=== PATIENT | male | born 1945 | race Caucasian/White ===

== ENCOUNTER 2025-02-28 11:13 | Outpatient (AMB) | payer MEDICARE, OTHER, SELFPAY ==
--- NOTE | 2025-02-28 11:15 | MHC.OFFVIS ---
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 The patient experienced shingles in 2020, which resulted in nerve damage and persistent pain. Despite initial antiviral treatment, the condition progressed to postherpetic neuralgia, characterized by hypersensitivity and scarring on the right side of the chest. The patient reports severe sensitivity to touch, extending from the chest to the armpit, impacting daily activities such as writing due to right-handedness. The patient has tried various pain management strategies, including gabapentin, which was initially effective but later caused brain fog and was discontinued. Current pain management includes Tylenol, ibuprofen, CBD, and lidocaine cream, which provide partial relief. - Onset: Pain began following shingles in 2020 - Quality: Hypersensitivity and burning sensation - Location: Right side of the chest, extending to the armpit - Exacerbating factors: Touch and pressure - Relieving factors: Lidocaine cream, CBD, and positioning - Interference: Affects writing and daily activities due to right-handedness - Affect: Reports occassional depression due to chronic pain - Analgesia: Uses Tylenol, ibuprofen, CBD, and lidocaine cream for pain relief - Adverse Effects: Experienced brain fog from gabapentin, leading to discontinuation - Activities of Daily Living: Pain affects writing and posture, causing tension in the left shoulder - Aberrant Drug Related Behaviors: No aberrant behaviors reported Review of Systems Const Details: - Neurological: Reports hypersensitivity on the right side, affecting daily activities - Musculoskeletal: Reports tension in the left shoulder due to altered posture - Psychological: Reports depression related to chronic pain Physical Exam Vital Signs: Last Vital Signs Pulse 90 02/28/25 11:19 Resp 16 02/28/25 11:19 BP 111/54 L 02/28/25 11:19 Pulse Ox 98 02/28/25 11:19 Oxygen Delivery Method Room Air 02/28/25 11:19 BMI result Body Mass Index 16.9 General: awake, alert, oriented. Answers questions appropriately. Fully engaged in examination. Appears uncomfortable, sitting in chair holding shirt away from his chest due to allodynia. Skin: warm, dry, intact HEENT: Normocephalic. Hearing intact. Cardiac: External chest normal in appearance. Respiratory: No cough, audible wheezing or stridor. Abdomen: without gross distension. MS: No obvious swelling or deformities. Right upper back/right axilla/right chest: Normal for allodynia, hyperalgesia, skin changes including discoloration texture changes, muscle weakness Neurological: Oriented to person, place, time and situation. Thought process intact. No gait abnormalities appreciated. Psychiatric: Appropriate mood and affect. Good judgment and insight. Assessment & Plan Assessment & Plan (1) CRPS (complex regional pain syndrome type II): Code(s): G56.40 - Causalgia of unspecified upper limb Category: Medical (2) Post herpetic neuralgia: Code(s): B02.29 - Other postherpetic nervous system involvement Category: Medical (3) Chronic pain: Code(s): G89.29 - Other chronic pain Category: Medical Plan The patient was informed about the option of spinal cord stimulation as a potential treatment for chronic pain due to CRPS. The procedure involves a one-week trial with temporary wires to assess pain relief before considering permanent implantation. The patient was advised to consider the procedure and was informed about the need for a mental health evaluation as part of the insurance approval process. Pamphlet was provided to the patient. He was given contact information for [employer] and also advised he can also reach out to his insurance company to find mental providers to assist with mental health clearance for implantable devices as by insurance company. The patient was encouraged to continue current pain management strategies, including the use of Tylenol, ibuprofen, CBD, and lidocaine cream. Patient was informed and verbally consented to the use of an ambient scribe for clinic note documentation during this visit. Patient Instructions: - Consider the option of spinal cord stimulation for pain management. - Continue current pain management with Tylenol, ibuprofen, CBD, and lidocaine cream. - Schedule a mental health evaluation for insurance approval if considering spinal cord stimulation. Coding Level of Care Code New Pt Level 4 (92995) Complex EM visit Add On G2211 Diagnoses CRPS (complex regional pain syndrome type II) G56.40 Post herpetic neuralgia B02.29 Chronic pain G89.29
[2025-02-28 11:19] VITALS: BP 111/54; PULSE 90; RESP 16; O2SAT 98; BMI 16.9
== END 2025-02-28 11:57 | disposition home or self-care (01) ==
LOC: HO.PMC 11:13
PROVIDERS: PCP Internal Medicine; Visit Provider Registered Nurse Emergency
DX: B02.29 Other postherpetic nervous system involvement (principal); G89.29 Other chronic pain
CPT/HCPCS: 99204; G2211

== ENCOUNTER → 2025-02-28 11:13 | Outpatient (BNVA) | payer MEDICARE, OTHER, SELFPAY | PROVIDERS: PCP Internal Medicine; Visit Provider Registered Nurse Emergency | DX: G56.41 Causalgia of right upper limb (principal); B02.29 Other postherpetic nervous system involvement; G89.29 Other chronic pain | CPT/HCPCS: 99202 ==

== ENCOUNTER 2025-04-17 11:20 | Outpatient (AMB) | payer MEDICARE, OTHER, SELFPAY ==
--- OUTSIDE RECORDS SUMMARY | 2025-04-14 13:20 | XMS_ITS | Encounter Summary ---
Author Organization [facility] Address [address] [place] [address] Phone Care Team Providers Care Timber Packer Name Role Phone Malcolm Molina MD Primary Care Provider [phone] Malcolm Molina MD Unavailable [phone] Reason for Visit * Reason Comments Tick Bite Pt is here for tick on the left shoulder. Onset 10 days Encounter Details Date Type Department Care Team (Late st Contact Info) Description 04/14/2025 1:20 PM EDT Office Visit [facility] [address] [place] [address] Valarie Casas, [facility] [address] [place] [address] [email or web address] Tick bite of left shoulder, initial encounter (Primary Dx); Erythema migrans (Lyme disease) Social History Tobacco Use Types Packs/Day Years Used Date Smoking Tobacco: Former Cigarettes 1 967 - 1971 Smokeless Tobacco: Never Alcohol Use Standard Drinks/Week Comments Yes 1 (1 standard drink = 0.6 oz pur e alcohol) nightly Child or Family Care Answer Date Record ed Do you have problems with on e of the following making it difficult for you to work, study, or receive health care? No 08/09/2021 Education Answer Date Recorded Are you interested in more education? Not on pauline e 08/13/2023 Are you concerned about learning?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 08/13/2023 No 08/13/2023 No 08/13/2023 Food Answer Date Recorded Within the past 6 months we worried whether our food would run out before we got money to buy more. Never True 08/09/2021 Within the past 6 months the food we bought just didn't last and we didn't have enough money to get more. Never True Residential Stability Answer Date Recor ded What is your housing situation today? 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 Zero (I did not move) 08/09/2021 Paying for Meds Answer Date Recorded Do you have trouble paying for medicines? No 08/09/2021 Paying Utility Bills Answer Date Record ed Do you have trouble paying your heating or elect ricity bill? No 08/09/2021 Transportation Answer Date Recorded Has the lack of transportati on kept you from medical appointments or from getting medications? No 08/09/2021 Unemployment Answer Date Recorded Are you currently unemployed or working on a part-time or temporary basis, and looking for work? No 08/09/2021 Digital Access Answer Date Recorded No 01/13/2023 No 01/13/2023 Reliable internet access at home?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 01/13/2023 Device with a working camera?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 Intimate Partner Violence Answer Date R ecorded Are you denied basic needs s [facility] as food, clothing, or medical care? No 06/27/2024 In the past 12 months have y ou been in a relationship with a person who hurts, threatens, or tries to control you? No 06/27/2024 Are you denied basic needs s [facility] as food, clothing, or medical care? No 06/27/2024 In the past 12 months have y ou been in a relationship with a person who hurts, threatens, or tries to control you? 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 documented as of this encounter Last Filed Vital Signs Vital Sign Reading Time Taken Comments Blood Pressure 135/76 04/14/2025 2:08 PM EDT Pulse 69 04/14/2025 2:08 PM EDT Temperature 36.1 C (97 F) 04/14/2025 2:08 PM EDT Respiratory Rate 20 04/14/2025 2:08 PM EDT Oxygen Saturation 100% 04/14/2025 2:08 PM EDT Inhaled Oxygen Concentration - - Weight 47.6 kg (105 lb) 04/14/2025 2:08 PM EDT Height 170.2 cm (5' 7 ) 04/14/2025 2:08 PM EDT Body Mass Index 16.45 04/14/2025 2:08 PM EDT documented in this encounter Patient Instructions * Patient Instructions* Valarie Casas CNP - 04/14/2025 1:20 PM EDT 1) Please start the doxycycline and take the full course even if the tick testing is negative as your symptoms are consistent with lyme disease and it can take 4-6 weeks after a tick bite to develop enough antibodies to test positive. 2) Take the doxycycline after eating. Separate from dairy products by a couple of hours. Take the second dose at least one hour before laying down. Use caution in the sunlight as doxycycline can cause a sun sensitivity rash. 3) Take a probiotic 2 hours after each dose of the antibiotic. To help prevent upset, diarrhea, yeast infection. 4) Get re-evaluated for new or worsening symptoms. * Attachments The following attachments cannot be sent through Care Everywhere. * Tick Bite (Paraguayan) * Lyme Disease ([place]aguayan) documented in this encounter Progress Notes * Valarie Casas CNP - 04/14/2025 1:20 PM EDT Images from the original note were not included. Subjective: Patient ID: Nicholas Gray is a 80 y.o. male. 80-year-old male patient presents to clinic today with complaint of tick bite to left upper back/shoulder that occurred 10 days ago. Patient reports he has a circular reddened area on shoulder. Patient concerned for a tickborne illness. Patient requesting testing. Patient denies any flulike symptoms. Patient only has tick bite with surrounding redness. Denies any pain, itching, issue from site oftick bite. Patient reports a year ago he was treated for a tickborne illness concerned that may happen again. Review of Systems All other systems reviewed and are negative. Skin: Positive for wound. Tick bite with surrounding redness Vitals: 04/14/25 1408 BP: 135/76 BP Location: Left arm Patient Position: Sitting Pulse: 69 Resp: 20 Temp: 36.1 ??C (97 ??F) TempSrc: Temporal SpO2: 100% Weight: 47.6 kg (105 lb) Height: 170.2 cm (5' 7 ) Objective: Physical Exam Vitals reviewed. Constitutional: General: He is not in acute distress. Appearance: Normal appearance. He is not ill-appearing. HENT: Head: Normocephalic. Eyes: Conjunctiva/sclera: Conjunctivae normal. Cardiovascular: Rate and Rhythm: Normal rate. Pulses: Normal pulses. Pulmonary: Effort: Pulmonary effort is normal. Skin: General: Skin is warm and dry. Comments: Large, erythematous, annular rash with central clearing, consistent with bull's-eye appearance. No purulent drainage, induration, or fluctuance. No regional lymphadenopathy noted. Image in patient media. Neurological: Mental Status: He is alert. No results found for this visit on 04/14/25. Procedure: Procedures Assessment/Plan: Diagnosis Plan 1. Tick bite of left shoulder, initial encounter doxycycline monohydrate (MONODOX) 100 MG capsule 2. Erythema migrans (Lyme disease) doxycycline monohydrate (MONODOX) 100 MG capsule Assessment and Plan: The patient presents for evaluation of a rash after a recent tick bite. On exam the rash is consistent with erythema migrans. There is no presence of arthralgias, neurological manifestations, or sepsis. Doxycycline was ordered for 10 days, side effects discussed. Probiotics discussed. Symptomatic management discussed with washing the area with soap and water, warm compresses, and antihistamines for itching. Red flag symptoms were discussed and will be seen in the ER if they develop. If symptomspersist after completion of the antibiotic we will follow-up with her PCP. * Fly Ahn MD - 04/14/2025 1:20 PM EDT Subject Line: Provider Attestation I have reviewed the notes, assessments, and/or procedures performed by Valarie Casas CNP, I concur with her/his documentation of Nicholas Gray. documented in this encounter Plan of Treatment Upcoming Encounters Date Type Department Care Team (Late st Contact Info) Description 06/26/2025 11:30 AM EST Office Visit [address] [place] [address] Malcolm Molina MD [address] [place] [address], [address] [address] [email or web address] 08/05/2025 10:45 AM EST Office Visit [address] [place] [address] Malcolm Molina MD [address] [place] [address], [address] [address] documented as of this encounter Visit Diagnoses Diagnosis Tick bite of left shoulder, initial encounter- Primary Erythema migrans (Lyme disease) Lyme disease documented in this encounter Additional Health Concerns Assessment Noted Time PHQ-2 Depression Total Score: 0 06/27/20 10:28 AM EST documented as of this encounter Care Teams Timber Packer Relationship Specialty Start Date End Date Malcolm Molina MD [address] [place] [address], [address] [address] PCP - General Internal Medicine 05/17/24 Malcolm Molina MD [address] [place] [address], [address] [place] [id number] [email or web address] Insurance Assigned Provider 11/24/24 documented as of this encounter Additional Source Comments The information contained in this document represents components of the legal health record. It is not the complete legal health record.[facility]
--- OUTSIDE RECORDS SUMMARY | 2025-04-14 15:09 | XMS_ITS | Encounter Summary ---
Author Organization [facility] Address [address] [place] [address] Phone Care Team Providers Care Otologist Name Role Phone Maclolm Molina MD Primary Care Provider [phone] Malcolm Molina MD Unavailable [phone] Encounter Details Date Type Department Care Team (Latest Contact Info) Description 04/14/2025 3:09 PM EDT - 04/14/2025 11:59 PM EDT Hospital Encounter [facility], X-Ray - [address] [place] [address] Malcolm Molina MD [address] [facility] [place] [address] [email or web address] Arrived Discharge Disposition: Home or Self Care Social History Tobacco Use Types Packs/Day Years Used Date Smoking Tobacco: Former Cigarettes 1 7 1971 Smokeless Tobacco: Never Alcohol Use Standard [...] ecorded Are you denied basic needs s uch as food, clothing, or medical care? No 06/27/2024 In the past 12 months have y ou been in a relationship with a person who hurts, threatens, or tries to control you? No 06/27/2024 Are you denied basic needs s uch as food, clothing, or medical care? 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 09/19/2022 mirtazapine (REMERON) 15 MG tablet take 1 tablet by mouth everyday at bedtime 06/19/2023 nitroglycerin (NITROSTAT) 0.4 MG SL tablet 1 tablet by mouth, under the tongue, every 5 minutes as needed for chest pain, seek medical care if no relief with second dose. watch for lightheadedness . OLANZapine (ZYPREXA) 2.5 MG tabletIndications :Weight loss, abnormal Take 2 tablets (5 mg total) by mouth nightly at bedtime. 60 tablet 5 03/25/2025 sildenafiL (VIAGRA) 100 mg tablet Take 1 tablet (100 mg total) by mouth daily as needed. 6 tablet 5 05/17/2024 doxycycline monohydrate (MONODOX) 100 MG capsuleIndication s:Tick bite of left shoulder, initial encounter,Erythem a migrans (Lyme disease) Take 1 capsule (100 mg total) by mouth 2 (two) times a day for 10 days. Take a probiotic 2 hours after each dose of antibiotic. 20 capsule 04/14/2025 documented as of this encounter Progress Notes * Malcolm Molina MD - 04/14/2025 3:15 PM EDT Results are reviewed, and are normal documented in this encounter Plan of Treatment Upcoming Encounters Date Type Department Care Team (Late st Contact Info) Description 06/26/2025 11:30 AM EST Office Visit [address] [place] [address] Malcolm Molina MD [address] [place] [address], [address] [place] [address] 08/05/2025 10:45 AM EST Office Visit [address] [place] [address] Malcolm Molina MD [address] [place] [address] [email or web address] documented as of this encounter Procedures Procedure Name Priority Date/Time Associated Diagnosis Comments XR CHEST PA AND LATERAL 2 VIEWS Routine 04/14/2025 3:20 PM EDT Weight loss, abnormal documented in this encounter Results * XR CHEST PA AND LATERAL 2 VIEWS (04/14/2025 3:20 PM EDT) Anatomical Region Laterality Modality Chest Computed Radiogr aphy 04/14/2025 3:32 PM EDT Impressions 04/14/2025 3:35 PM EDT No acute abnormality. Narrative 04/14/2025 3:35 PM EDT XR CHEST PA AND LATERAL 2 VIEWS Referring clinician's provided indication for this examination in [facility]: Weight Loss COMPARISON: XR CHEST PA AND LATERAL 2 VIEWS FINDINGS: Devices/Tubes/Lines: None. Lungs: Calcified biapical scarring. No consolidation or pulmonary edema. Pleura: No pleural effusion or pneumothorax. Heart/Mediastinum: The heart and mediastinum are normal. Bones/Soft Tissues: No acute skeletal abnormality. Stable left posterior 10th rib deformity. Procedure Note J Luis Dozier MD - 04/14/2025 XR CHEST PA AND LATERAL 2 VIEWS Referring clinician's provided indication for this examination in [facility]:Weight Loss COMPARISON: XR CHEST PA AND LATERAL 2 VIEWS FINDINGS: Devices/Tubes/Lines: None. Lungs: Calcified biapical scarring. No consolidation or pulmonary edema. Pleura: No pleural effusion or pneumothorax. Heart/Mediastinum: The heart and mediastinum are normal. Bones/Soft Tissues: No acute skeletal abnormality. Stable left [id number] rib deformity. IMPRESSION: No acute abnormality. us Malcolm Molina MD IMG XR CHEST Final Result documented in this encounter Visit Diagnoses Diagnosis Weight loss, abnormal documented in this encounter Additional Health Concerns Assessment Noted Time PHQ-2 Depression Total Score: 0 06/27/20 24 10:28 AM EST documented as of this encounter Care Teams Otologist Relationship Specialty Start Date End Date Malcolm Molina MD [address] [place] [address], [address] [place] [address] [email or web address] [email or web address] - General Internal Medicine 05/17/24 Malcolm Molina MD [address] [place] [address] [email or web address] Insurance Assigned Provider 11/24/24 documented as of this encounter Additional Source Comments The information contained in this document represents components of the legal health record. It is not the complete legal health record.[facility]
--- NOTE | 2025-04-17 11:43 | MHC.OFFVIS ---
Vital Signs 04/17/25 11:45 Height 5 ft 7 in Weight 107 lb 6 oz BMI 16.8 BP 103/57 L Blood Pressure Location Lt brachial Position Sitting Respiration 20 Pulse 82 Pulse Source Pulse Oximeter Pulse Oximetry (%) 99 Oxygen Delivery Method Room Air Intake Visit Reasons: SECOND OPINION ON PROCEDURE Manager Recovery Required: No Allergies Penicillins Allergy (Mild, Verified 04/17/25 11:45) Hives HPI Comments Details: Aroldo is in my office today to discuss a 2nd opinion about his post herpetic neuralgia. It was very long and detailed conversation. He is not very eager to get involved in implantable device treatment. He stated today that he manages his pain with lidocaine cream and diclofenac cream. He reports that insertion of the implantable device is not something he is looking forward for. I explained to the patient that he at this time is not able to compare how good SCS will affect his pain, I told him that the 1st we go through the trial and for 7 day trial he will tell us if he has good pain relief after the procedure. I explained to him that I will make consideration for implantation only if he reports 75% pain relief or better. I also explained to the patient that last resort to treat his pain would be intrathecal drug delivery system pain pump. In his situation the pain pump will be positioned in lower cervical or upper thoracic positioned. The medication will be assume fentanyl or fentanyl. Brochure about pain pump was given to the patient. I also explained to the patient that I can prescribe to him lidocaine patch 5% which is indicated for his condition of post herpetic neuralgia. Prior: The patient is a 80-year-old male presenting with chronic pain due to postherpetic neuralgia. The patient experienced shingles in 2020, which resulted in nerve damage and persistent pain. Despite initial antiviral treatment, the condition progressed to postherpetic neuralgia, characterized by hypersensitivity and scarring on the right side of the chest. The patient reports severe sensitivity to touch, extending from the chest to the armpit, impacting daily activities such as writing due to right-handedness. The patient has tried various pain management strategies, including gabapentin, which was initially effective but later caused brain fog and was discontinued. Current pain management includes Tylenol, ibuprofen, CBD, and lidocaine cream, which provide partial relief. - Onset: Pain began following shingles in 2020 - Quality: Hypersensitivity and burning sensation - Location: Right side of the chest, extending to the armpit - Exacerbating factors: Touch and pressure - Relieving factors: Lidocaine cream, CBD, and positioning - Interference: Affects writing and daily activities due to right-handedness - Affect: Reports occassional depression due to chronic pain - Analgesia: Uses Tylenol, ibuprofen, CBD, and lidocaine cream for pain relief - Adverse Effects: Experienced brain fog from gabapentin, leading to discontinuation - Activities of Daily Living: Pain affects writing and posture, causing tension in the left shoulder - Aberrant Drug Related Behaviors: No aberrant behaviors reported Review of Systems Const All systems reviewed & are unremarkable except as noted in HPI and below Physical Exam Vital Signs: Last Vital Signs Pulse 82 04/17/25 11:45 Resp 20 04/17/25 11:45 BP 103/57 L 04/17/25 11:45 Pulse Ox 99 04/17/25 11:45 Oxygen Delivery Method Room Air 04/17/25 11:45 BMI result Body Mass Index 16.8 General: awake, alert, oriented. Answers questions appropriately. Fully engaged in examination. Appears uncomfortable, sitting in chair holding shirt away from his chest due to allodynia. Skin: warm, dry, intact HEENT: Normocephalic. Hearing intact. Cardiac: External chest normal in appearance. Respiratory: No cough, audible wheezing or stridor. Abdomen: without gross distension. MS: No obvious swelling or deformities. Right upper back/right axilla/right chest: Normal for allodynia, hyperalgesia, skin changes including discoloration texture changes, muscle weakness Neurological: Oriented to person, place, time and situation. Thought process intact. No gait abnormalities appreciated. Psychiatric: Appropriate mood and affect. Good judgment and insight. Assessment & Plan Assessment & Plan (1) CRPS (complex regional pain syndrome type II): Code(s): G56.40 - Causalgia of unspecified upper limb Category: Medical (2) Post herpetic neuralgia: Code(s): B02.29 - Other postherpetic nervous system involvement Category: Medical (3) Chronic pain: Code(s): G89.29 - Other chronic pain Category: Medical Plan Severe allodynia in the projection of the right lateral chest make us think about Complex regional pain syndrome as the cause of the pain of this patient. It is well beyond all the times for healing of the post herpetic neuralgia for this patient. SCS was explained to the patient. The details of the procedure trial and following implantation were carefully explained to the patient. Last resort of the treatment of this condition with intrathecal pain pump was also explained to the patient. Patient expressed understanding currently he is not very eager to go for an implantable device. I will prescribe to the patient lidocaine patch 5% so this will be substitute for lidocaine topical cream he is applying to his chest every night. Lidocaine topical patch maybe better for the patient and longer acting. Medications: New lidocaine 5% leave on most painful area for up to 12 hrs 1 patch topical DAILY 30 ea 8RF 30 days B02.29 - Other postherpetic nervous system involvement Patient Instructions: I here by testify that I spent 35 minutes in conversation with this patient as well as planning his care and organizing this note. Coding Level of Care Code Est Pt Level 4 (00334) Diagnoses CRPS (complex regional pain syndrome type II) G56.40 Post herpetic neuralgia B02.29 Chronic pain G89.29
[2025-04-17 11:45] VITALS: BP 103/57; PULSE 82; RESP 20; O2SAT 99; BMI 16.8
--- OUTSIDE RECORDS SUMMARY | 2025-04-17 12:39 | XMS_ITS | Encounter Summary ---
Author Organization [facility] Address [address] [place] [address] Phone Care Team Providers Care Storage Worker Name Role Phone Felicia Batres MD Primary Care Provider Thony Boggs MD Primary Care Provider + [phone] Herbert Heath MD Primary Care Provider + [phone] Herbert Heath MD Unavailable [phone] Adwoa Elena OT Unavailable [phone] Stefanie Jain RN Unavailable Malcolm Molina MD Primary Care Provider [phone] Malcolm Molina MD Unavailable [phone] Encounter Details Date Type Department Care Team (Late st Contact Info) Description 08/05/2020 Transcribe Orders Virtual Department [address] [place] [address] Felicia Batres MD [address] [place] [address] [place] [address] [email or web address] Travel advice encounter (Primary Dx) Social History Tobacco Use Types Packs/Day Years Used Date Smoking Tobacco: Former Cigarettes Smokeless Tobacco: Never Alcohol Use Standard Drinks/Week Comments Yes 2 (1 standard drink = 0.6 oz pur e alcohol) nightly Sex and Gender Information Value Date Recorded Sex Assigned at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 Legal Sex Male 6:27 PM EST Gender Identity Male 08/26/2021 10:38 AM EST Sexual Orientation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 documented as of this encounter Plan of Treatment Upcoming Encounters Date Type Department Care Team (Late st Contact Info) Description 06/26/2025 11:30 AM EST Office Visit [address] [place] [address] Malcolm Molina MD [address] [place] [address], [address] [place] [address] 08/05/2025 10:45 AM EST Office Visit [address] [place] [address] Malcolm Molina MD [address] [place] [address], [address] [place] [address] [email or web address] documented as of this encounter Visit Diagnoses Diagnosis Travel advice encounter- Primary documented in this encounter Additional Health Concerns Infection Onset Date Last Indicated Resolved Time CoV-Risk Comment:Per note documentation 05/14/2023 05/14/2023 10:26 AM EDT documented as of this encounter Care Teams Storage Worker Relationship Specialty Start Date End Date Felicia Batres MD [address] [place] [address] [place] [address] [email or web address] PCP - General Internal Medicine 07/20/20 08/11/20 Thony Boggs MD [address] [place] [address] [email or web address] PCP - General Internal Medicine 08/12/20 08/08/21 Herbert Heath MD [address] [place] [address], [address] [place] [address] PCP - General Internal Medicine 08/09/21 05/16/24 Malcolm Molina MD [address] [place] [address], [address] [place] [address] PCP - General Internal Medicine 05/17/24 Herbert Heath MD [address] [place] [address], [address] [place] [address] Insurance Assigned Provider 11/25/23 11/24/24 Adwoa Elena, OT [address] [place] [address] Transitions Drafter ElectromechanicalChainstitch Seat Joiner Therapy 05/17/23 Stefanie Jain, RN [address] [place] [address] iCMP Drafter Electromechanical 01/03/24 01/16/24 Malcolm Molina MD [address] [place] [address], [address] [place] [address] Insurance Assigned Provider 11/24/24 documented as of this encounter Additional Source Comments The information contained in this document represents components of the legal health record. It is not the complete legal health record.[facility]
--- OUTSIDE RECORDS SUMMARY | 2025-04-17 12:39 | XMS_ITS | Encounter Summary ---
Author Organization [facility] Address [address] [facility] [address] [place] [address] Phone Care Team Providers Care Academic Director Name Role Phone Herbert Heath MD Primary Care Provider [phone] Herbert Heath MD Unavailable [phone] Adwoa Elena OT Unavailable [phone] Stefanie Jain RN Unavailable [phone] Malcolm Molina MD Primary Care Provider [phone] Malcolm Molina MD Unavailable [phone] Encounter Details Date Type Department Care Team (Late st Contact Info) Description 09/03/2021 Telephone [facility] Medicine [address] [place] [address] Herbert Heath MD [address] [facility], [address] [place] [address] [email or web address] Social History Tobacco Use Types Packs/Day Years [...] Answer Date Recorded Are you interested in help w ith more adult education (for example, completing high school, GED, job training, learning the Ecuadorean language, technical skills, or developing parenting skills)? No 08/09/2021 Food Answer Date Recorded Within the past [...] basis, and looking for work? 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 documented as of this encounter Plan of Treatment Upcoming Encounters Date Type Department Care Team (Late st Contact Info) Description 06/26/2025 11:30 AM EST Office Visit [address] [place] [address] Malcolm Molina MD [address] [place] [address], [address] [place] [address] 08/05/2025 10:45 AM EST Office Visit [address] [place] [address] Malcolm Molina MD [address] [place] [address], [address] [place] [address] [email or web address] documented as of this encounter Visit Diagnoses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documented in this encounter Additional Health Concerns Infection Onset Date Last Indicated Resolved Time CoV-Risk Comment:Per note documentation 05/14/2023 05/14/2023 10:26 AM EDT Assessment Noted Time PHQ-2 Depression Total Score: 0 08/09/20 9:59 AM EST documented as of this encounter Care Teams Academic Director Relationship Specialty Start Date End Date Herbert Heath MD [address] [place] [address], [address] [address] PCP - General Internal Medicine 08/09/21 05/16/24 Malcolm Molina MD [address] [place] [address] PCP - General Internal Medicine 05/17/24 Herbert Heath MD [address] [place] [address], [address] [address] Insurance Assigned Provider 11/25/23 11/24/24 Adwoa Elena, OT [address] [place] [address] [email or web address] Transitions Elevated MotormanSolar Panel Installer Therapy 05/17/23 Stefanie Jain, RN [address] [place] [address] iCMP Elevated Motorman 01/03/24 01/16/24 Malcolm Molina MD [address] [place] [address], [address] [place] [address] [email or web address] Insurance Assigned Provider 11/24/24 documented as of this encounter Additional Source Comments The information contained in this document represents components of the legal health record. It is not the complete legal health record.[facility]
--- OUTSIDE RECORDS SUMMARY | 2025-04-17 12:39 | XMS_ITS | Encounter Summary ---
Author Organization [facility] Address [address] [place] [address] Phone Care Team Providers Care Application Lead Name Role Phone Herbert Heath MD Primary Care Provider [phone]- [phone] Herbert Heath MD Unavailable [phone] Adwoa Elena OT Unavailable [phone] Stefanie Jain RN Unavailable [phone] Malcolm Molina MD Primary Care Provider [phone] Malcolm Molina MD Unavailable [phone] Encounter Details Date Type Department Care Team (Late st Contact Info) Description 05/14/2023 Procedure [facility], Ct Scan - [address] [address] Social History Tobacco Use Types Packs/Day Years Used Date Smoking Tobacco: Former Cigarettes 1 7 - 1971 Smokeless Tobacco: Never Alcohol Use [...] high school, GED, job training, learning the Greenlandic language, technical skills, or developing parenting skills)? [...] your housing situation today? I have humaira sing 08/09/2021 How many times have you move [...] with a working camera?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 Wish to be (Past 1 Month) No 05/14/2023 10:39 AM Alida Joseph RN 2. Non-Specific Active Suicidal Thoughts (Past 1 Month) No 05/14/2023 10:39 AM EDT Cadigan, Jennife r H, RN 6. Suicidal Behavior (Lifetime) No 05/14/2023 10:39 AM EDT Alida Edwards RN documented as of this encounter Plan of Treatment Upcoming Encounters Date Type Department Care Team (Late st Contact Info) Description 06/26/2025 11:30 AM EST Office Visit [address] [place] [address] Malcolm Molina MD [address] [place] [address], [address] [place] [address] [email or web address] 08/05/2025 10:45 AM EST Office Visit [address] [place] [address] Malcolm Molina MD [address] [place] [address], [address] [address] documented as of this encounter Visit Diagnoses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documented in this encounter Additional Health Concerns Infection Onset Date Last Indicated Resolved Time CoV-Risk Comment:Per note documentation 05/14/2023 05/14/2023 10:26 AM EDT Assessment Noted Time PHQ-2 Depression Total Score: 0 05/08/20 23 5:00 PM EDT documented as of this encounter Care Teams Application Lead Relationship Specialty Start Date End Date Herbert Heath MD [address] [place] [address], [address] [address] PCP - General Internal Medicine 08/09/21 05/16/24 Malcolm Molina MD [address] [place] [address] PCP - General Internal Medicine 05/17/24 Herbert Heath MD [address] [place] [address], [address] [place] [address] [email or web address] Insurance Assigned Provider 11/25/23 11/24/24 Adwoa Elena, OT [address] [place] [address] Transitions Manager TelemetryBow String Maker Therapy 05/17/23 Stefanie Jain, BERNARDINO [address] [place] [address] iCMP Manager Telemetry 01/03/24 01/16/24 Malcolm Molina MD [address] [place] [address], [address] [place] [address] Insurance Assigned Provider 11/24/24 documented as of this encounter Additional Source Comments The information contained in this document represents components of the legal health record. It is not the complete legal health record.[facility]
--- OUTSIDE RECORDS SUMMARY | 2025-04-17 12:39 | XMS_ITS | Encounter Summary ---
Author Organization [facility] Address [address] [place] [address] Phone Care Team Providers Care Yardage Estimator Name Role Phone Herbert Heath MD Primary Care Provider +- [phone] Herbert Heath MD Unavailable [phone] Adwoa Elena OT Unavailable [phone] Stefanie Jain RN Unavailable [phone] Malcolm Molina MD Primary Care Provider [phone] Malcolm Molina MD Unavailable [phone] Encounter Details Date Type Department Care Team (Late st Contact Info) Description 05/14/2023 Procedure Pass [facility], Ct Scan - [address] [address] Social History Tobacco Use Types Packs/Day Years [...] high school, GED, job training, learning the Croatian language, technical skills, or developing parenting skills)? 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 Wish to be (Past 1 Month) No 05/14/2023 10:39 AM Alida Joseph RN 2. Non-Specific Active Suicidal Thoughts (Past 1 Month) No 05/14/2023 10:39 AM EDT Cadigan, Jennife r H, RN 6. Suicidal Behavior (Lifetime) No 05/14/2023 10:39 AM EDT lAida Edwards RN documented as of this encounter Plan of Treatment Upcoming Encounters Date Type Department Care Team (Late st Contact Info) Description 06/26/2025 11:30 AM EST Office Visit [address] [place] [address] Malcolm Molina MD [address] [place] [address], [address] [place] [address] [email or web address] 08/05/2025 10:45 AM EST Office Visit [address] [place] [address] Malcolm Molina MD [address] [place] [address], [address] [address] documented as of this encounter Visit Diagnoses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documented in this encounter Additional Health Concerns Infection Onset Date Last Indicated Resolved Time CoV-Risk Comment:Per note documentation 05/14/2023 05/14/2023 10:26 AM EDT Assessment Noted Time PHQ-2 Depression Total Score: 0 05/08/20 23 5:00 PM EDT documented as of this encounter Care Teams Yardage Estimator Relationship Specialty Start Date End Date Herbert Heath MD [address] [place] [address], [address] [address] PCP - General Internal Medicine 08/09/21 05/16/24 Malcolm Molina MD [address] [place] [address] PCP - General Internal Medicine 05/17/24 Herbert Heath MD [address] [place] [address], [address] [place] [address] [email or web address] Insurance Assigned Provider 11/25/23 11/24/24 Adwoa Elena, OT [address] [place] [address] Sql Developer Therapy 05/17/23 Stefanie Jain, BERNARDINO [address] [place] [address] iCMP Core Sucker 01/03/24 01/16/24 Malcolm Molina MD [address] [place] [address], [address] [place] [address] Insurance Assigned Provider 11/24/24 documented as of this encounter Additional Source Comments The information contained in this document represents components of the legal health record. It is not the complete legal health record.[facility]
--- OUTSIDE RECORDS SUMMARY | 2025-04-17 12:39 | XMS_ITS | Encounter Summary ---
Author Organization [facility] Address [address] [facility] [address] [place] [address] Phone Care Team Providers Care Estimator Printing Name Role Phone Felicia Batres MD Primary Care Provider Thony Boggs MD Primary Care Provider [phone] Herbert Heath MD Primary Care Provider + [phone] Herbert Heath MD Unavailable [phone] Adwoa Elena OT Unavailable [phone] Stefanie Jain RN Unavailable [phone] Malcolm Molina MD Primary Care Provider Malcolm Molina MD Unavailable [phone] Reason for Referral * Outpatient Procedure - Closed Specialty Diagnoses / Procedures Referred By Nilay t Referred To Contact Diagnoses Chest pain, unspecified type Procedures Stress Echo Exercise Felicia Batres MD Phone: tel: fax: mailto:[email or web address] Referral ID Status Reason Start Date Expiration Date Visits Re quested Visits Authorized [id number] Closed 07/20/2020 07/20/2021 1 1 Encounter Details Date Type Department Care Team (Late st Contact Info) Description 07/20/2020 Transcribe Orders Virtual Department [address] [place] [address] Felicia Batres MD [address] [place] [address] [email or web address] Chest pain, unspecified type (Primary Dx) Social History Tobacco Use Types Packs/Day Years Used Date Smoking Tobacco: Never Assessed Sex and Gender Information Value Date Recorded Sex Assigned at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 Legal Sex Male 6:27 PM EST Gender Identity Male 08/26/2021 10:38 AM EST Sexual Orientation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 documented as of this encounter Plan of Treatment Upcoming Encounters Date Type Department Care Team ([facility] Contact Info) Description 06/26/2025 11:30 AM EST Office Visit [address] [place] [address] Malcolm Molina MD [address] [place] [address], [address] [place] [address] [email or web address] 08/05/2025 10:45 AM EST Office Visit [address] [address] Malcolm Molina MD [address] [place] [address], [address] [place] [address] documented as of this encounter Results * STRESS ECHO EXERCISE W/ LVO CONTRAST W/ COLOR FLOW AND LIMITED DOPPLER (08/12/2020 10:58 AM EST) Max BP Systolic 134 mmHg [facility] Max BP Diastolic 66 mmHg [facility] Max HR 148 BPM [facility] Resting HR 84 BPM [facility] Resting BP Systolic 110 mmHg [facility] Resting BP Diastolic 54 mmHg [facility] Peak METS 7.0 METS [facility] Peak HR 137 BPM [facility] Anatomical Region Laterality Modality Heart Other, Ultrasoun d 08/12/2020 8:40 AM EST 08/12/2020 10:05 AM EST Narrative 08/12/2020 3:05 PM EST Patient exercised for 4:12 min on a ALYSSA protocol achieving 7.0 METS. Test terminated due to fatigue. Baseline resting HR was 84bpm. Max heart rate achieved was 148bpm (100% maximally predicted heart rate). During stress the left ventricular cavity became hyperdynamic. There were no inducible segmental left ventricular wall motion abnormalities noted at peak exercise. Normal study with no evidence of inducible ischemia. Stress ECG The heart rate changed from 84 bpm at rest to 137 bpm at peak stress. The blood pressure changed from 110/54 mmHg at rest. The patient's functional capacity is 7.0 METS. Additional findings: REPORT- Pt exercised for 4:12 min on a ALYSSA protocol achieving 7.0 METS. Test terminated due to fatigue. Baseline resting HR was 84bpm. Max heart rate achieved was 148bpm (100%MPHR). 1. EKG - Baseline EKG showed sinus rhythm, 67bpm. During exercise there were no ischemic EKG changes. 2. SYMPTOMS - No chest pian 3. EXERCISE PHYSIOLOGY - Average functional capacity for age. BP 110/54 at rest, BP 134/66 during exercise, BP 100/64 on discharge from stress lab. 4. ARRHYTHMIAS - No ectopy noted. Conclusion - There were no EKG changes suggestive of ischemia or symptoms concerning for angina. ECHO images pending and will be reported separately. Val Blanc, BRAND MARKETING MANAGER with Dr. Ayers. Baseline Echo The left ventricular cavity size is normal. The left ventricular wall thickness is normal. Left ventricular ejection fraction is normal. The ejection fraction at rest was measured by single dimension. The ejection fraction is 63% (Normal 50-75%). At rest, there are no segmental left ventricular wall motion abnormalities. Left ventricular diastolic function appears within normal limits for age. There is no evidence of mitral stenosis. There is trace mitral regurgitation detected by spectral and color Doppler at rest. The tricuspid valve appears normal. There is no evidence of tricuspid stenosis. There is no evidence of significant tricuspid regurgitation by color and spectral Doppler. Stress Echo The left ventricular cavity size is normal. The left ventricular wall thickness is normal. Left ventricular systolic function is normal. The left ventricular ejection fraction at stress is 82% (Normal 50-75%). The ejection fraction at stress was measured by visual method. There are no new inducible segmental left ventricular wall motion abnormalities noted at stress. us Felicia Batres MD CV STRESS ORDERABLES Fi nal Result documented in this encounter Visit Diagnoses Diagnosis Chest pain, unspecified type- Primary Chest pain, unspecified type documented in this encounter Additional Health Concerns Infection Onset Date Last Indicated Resolved Time CoV-Risk Comment:Per note documentation 05/14/2023 05/14/2023 10:26 AM EDT documented as of this encounter Care Teams Estimator Printing Relationship Specialty Start Date End Date Felicia Batres MD [address] [place] [address] [place] [address] [email or web address] PCP - General Internal Medicine 07/20/20 08/11/20 Thony Boggs MD [address] [place] [address] PCP - General Internal Medicine 08/12/20 08/08/21 Herbert Heath MD [address] [place] [address], [address] [address] PCP - General Internal Medicine 08/09/21 05/16/24 Malcolm Molina MD [address] [place] [address], [address] [place] [address] PCP - General Internal Medicine 05/17/24 Herbert Heath MD [address] [place] [address], [address] [address] Insurance Assigned Provider 11/25/23 11/24/24 Adwoa Elena, OT [address] [place] [address] [email or web address] Transitions Automatic Bow Maker Machine TenderMarine Drafter Therapy 05/17/23 Stefanie Jain, RN [address] [place] [address] [email or web address] [email or web address] Automatic Bow Maker Machine Tender 01/03/24 01/16/24 Malcolm Molina MD [address] [place] [address], [address] [place] [address] [email or web address] Insurance Assigned Provider 11/24/24 documented as of this encounter Additional Source Comments The information contained in this document represents components of the legal health record. It is not the complete legal health record.[facility]
--- OUTSIDE RECORDS SUMMARY | 2025-04-17 12:39 | XMS_ITS | Encounter Summary ---
Author Organization [facility] Address [address] [facility] [address] [facility] [address] [place] [address] Phone Care Team Providers Care Fill Manager Name Role Phone Felicia Batres MD Primary Care Provider Thony Boggs MD Primary Care Provider + [phone] Herbert Heath MD Primary Care Provider + [phone] Herbert Heath MD Unavailable [phone] Adwoa Elena OT Unavailable [phone] Stefanie Jain RN Unavailable [phone] Malcolm Molina MD Primary Care Provider [phone] Malcolm Molina MD Unavailable [phone] Reason for Referral * Consultation (Elective) - Closed Specialty Diagnoses / Procedures Referred By Nilay t Referred To Contact Pulmonary Disease Diagnoses Dyspnea on exertion Chronic obstructive pulmonary disease, unspecified COPD type Cough Felicia Batres MD Phone: tel: fax: mailto:[email or web address] [address] [address] Phone: tel: Referral ID Status Reason Start Date Expiration Date Visits Re quested Visits Authorized [id number] Closed 07/27/2020 07/27/2021 1 1 Encounter Details Date Type Department Care Team (Latest Contact Info) Description 07/27/2020 Transcribe [facility] [address] [place] [address] [address] Floor, [address] [place] [address] Eitan Colindres MD [address] [place] [address], [address] [place] [address] [email or web address] Dyspnea on exertion (Primary Dx); Chronic obstructive pulmonary disease, unspecified COPD type; Cough Social History Tobacco Use Types Packs/Day Years [...] Description 06/26/2025 11:30 AM EST Office Visit [address] [place] [address] Malcolm Molina MD [address] [place] [address], [address] [place] [address] 08/05/2025 10:45 AM EST Office Visit [address] [place] [address] Malcolm Molina MD [address] [place] [address], [address] [place] [address] Scheduled Referrals Name Type Priority Associated Diagnoses Orde r Schedule Ambulatory referral to [facility] Pulmonology Outpatient Referral Routine Dyspnea on exertion Chronic Obstructive Pulmonary Disease, Unspecified Copd Type Cough Ordered: 07/27/2020 documented as of this encounter Visit Diagnoses Diagnosis Dyspnea on exertion- Primary Other dyspnea and respiratory abnormality Chronic obstructive pulmonary disease, unspecified COPD type Cough documented in this encounter Additional Health Concerns Infection Onset Date Last Indicated Resolved Time CoV-Risk Comment:Per note documentation 05/14/2023 05/14/2023 10:26 AM EDT documented as of this encounter Care Teams Fill Manager Relationship Specialty Start Date End Date Felicia Batres MD [address] [place] [address] [place] [address] [email or web address] PCP - General Internal Medicine 07/20/20 08/11/20 Thony Boggs MD [address] [place] [address] PCP - General Internal Medicine 08/12/20 08/08/21 Herbert Heath MD [address] [place] [address], [address] [address] PCP - General Internal Medicine 08/09/21 05/16/24 Malcolm Molina MD [address] [place] [address], [address] [address] PCP - General Internal Medicine 05/17/24 Herbert Heath MD [address] [place] [address], [address] [place] [phone] Insurance Assigned Provider 11/25/23 11/24/24 Adwoa Elena, OT [address] [place] [address] Transitions Controls DesignerCarpet Mechanic Therapy 05/17/23 Stefanie Jain, BERNARDINO [address] [place] [phone] [email or web address] iCMP Controls Designer 01/03/24 01/16/24 Malcolm Molina MD [address] [place] [address], [address] [place] [address] [email or web address] Insurance Assigned Provider 11/24/24 documented as of this encounter Additional Source Comments The information contained in this document represents components of the legal health record. It is not the complete legal health record.[facility]
--- OUTSIDE RECORDS SUMMARY | 2025-04-17 12:39 | XMS_ITS | Encounter Summary ---
Author Organization [facility] Address [address] [facility] [address] [place] [address] Phone Care Team Providers Care Magazine Writer Name Role Phone Malcolm Molina MD Primary Care Provider [phone] Malcolm Molina MD Unavailable [phone] Reason for Visit * Reason Onset Date Comments Triage 04/14/2025 Green+Tick bite Encounter Details Date Type Department Care Team (Late st Contact Info) Description 04/14/2025 Telephone [email or web address] [address] [address] Malcolm Molina MD [address] [facility], [address] [place], [place] [id number] [email or web address] Triage (Green+Tick bite) Social History Tobacco Use Types Packs/Day Years 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 yesterday Have you ever experienced these symptoms before? NO Reason patient was not scheduled? Pt decided to go to in [place] Additional Information: Schedule appointment or offer Care Alternative Options provided in RYOG Tool Follow practice guidelines for routing directions Reason for Call = TRIAGE Comment = GREEN + symptom or NURSING ADVICE REQUEST if requesting to speak with nursing documented in this encounter Plan of Treatment Upcoming Encounters Date Type Department Care Team (Late st Contact Info) Description 06/26/2025 11:30 AM EST Office Visit [address] [place] [address] Malcolm Molina MD [address] [place] [address], [address] [place] [address] [email or web address] 08/05/2025 10:45 AM EST Office Visit [address] [place] [address] Malcolm Molina MD [address] [place] [address], [address] [place] [address] documented as of this encounter Visit Diagnoses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documented in this encounter Additional Health Concerns Assessment Noted Time PHQ-2 Depression Total Score: 0 06/27/20 24 10:28 AM EST documented as of this encounter Care Teams Magazine Writer Relationship Specialty Start Date End Date Malcolm Molina MD [address] [place] [address], [address] [place] [address] [email or web address] PCP - General Internal Medicine 05/17/24 Malcolm Molina MD [address] [place] [address], [address] [place], [place] [phone] [email or web address] Insurance Assigned Provider 11/24/24 documented as of this encounter Additional Source Comments The information contained in this document represents components of the legal health record. It is not the complete legal health record.[facility]
--- OUTSIDE RECORDS SUMMARY | 2025-04-17 12:39 | XMS_ITS | Encounter Summary ---
Author Organization [facility] Address [address] [facility] [address] [place] [address] Phone Care Team Providers Care Formstone Fitter Name Role Phone Herbert Heath MD Primary Care Provider [phone] Herbert Heath MD Unavailable [phone] Stefanie Jain RN Unavailable [phone] Malcolm Molina MD Primary Care Provider [phone] Malcolm Molina MD Unavailable [phone] Reason for Visit * Reason Onset Date Comments Request For Order(s) 11/27/2023 Encounter Details Date Type Department Care Team (Late st Contact Info) Description 11/27/2023 Telephone [email or web address] [address] [address] Herbert Heath MD [address] [facility], [address] [place] [address] [email or web address] Request For Order(s) Social History Tobacco Use Types Packs/Day Years 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 [employer]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 Heath instructed him to contact Dr. Garay for any requested tests * LbJose A - 11/27/2023 10:48 AM EDT Pt called to request a B-12 test. Pt stated that his neurologist, Dr Garay, asked him to get it. Please contact pt and advise. Central Support Equipment Cleaner And Tester (Please do not reply to this user; this inbox is not monitored.) Thank you. documented in this encounter Plan of Treatment Upcoming Encounters Date Type Department Care Team (Late st Contact Info) Description 06/26/2025 11:30 AM EST Office Visit [address] [place] [address] Malcolm Molina MD [address] [place] [address], [address] [place] [address] [email or web address] 08/05/2025 10:45 AM EST Office Visit [address] [place] [address] Malcolm Molina MD [address] [place] [address], [address] [place] [phone] [email or web address] documented as of this encounter Visit Diagnoses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documented in this encounter Additional Health Concerns Assessment Noted Time PHQ-2 Depression Total Score: 0 05/08/20 23 5:00 PM EDT documented as of this encounter Care Teams Formstone Fitter Relationship Specialty Start Date End Date Herbert Heath MD [address] [place] [address], [address] [place], [place] [phone] PCP - General Internal Medicine 08/09/21 05/16/24 Malcolm Molina MD [address] [place] [address], [address] [place], [place] [phone] [email or web address] PCP - General Internal Medicine 05/17/24 Herbert Heath MD [address] [place] [address], [address] [place] [address] Insurance Assigned Provider 11/25/23 11/24/24 Stefanie Jain RN [address] [place] [id number] iCMP Burr Mill Operator 01/03/24 01/16/24 Malcolm Molina MD [address] [place] [address], [address] [place] [address] Insurance Assigned Provider 11/24/24 documented as of this encounter Additional Source Comments The information contained in this document represents components of the legal health record. It is not the complete legal health record.[facility]
--- OUTSIDE RECORDS SUMMARY | 2025-04-17 12:39 | XMS_ITS | Clinical Summary ---
Author Organization [facility] Address [address] [place] [address] Phone Care Team Providers Care Track Oiler Name Role Phone Malcolm Molina MD Primary Care Provider [phone] Malcolm Molina MD Unavailable [phone] Allergies Active Allergy Reactions Criticality Noted Date Comments Penicillins Unknown 06/06/2007 Pregabalin Headaches Medium 03/06/2023 Puwjwvxeqns-Kybkhkbhs-Uujpfltn Headaches 10/15 Medications acetaminophen (TYLENOL) 650 MG CR tabletIndicatio ns:Postherpetic neuralgia Take 2 tablets (1,300 mg total) by mouth 2 (two) times a day as needed for pain (specific location in comments). 3 Active mirtazapine (REMERON) 15 MG tablet take 1 tablet by mouth everyday at bedtime 3 Active sildenafiL (VIAGRA) 100 mg tablet Take 1 tablet (100 mg total) by mouth daily as needed. 6 tablet 5 4 Active nitroglycerin (NITROSTAT) 0.4 MG SL tablet 1 tablet by mouth, under the tongue, every 5 minutes as needed for chest pain, seek medical care if no relief with second dose. watch for lightheadedne ss. Active OLANZapine (ZYPREXA) 2.5 MG tabletIndicatio ns:Weight loss, abnormal Take 2 tablets (5 mg total) by mouth nightly at bedtime. 60 tablet 5 5 Active doxycycline monohydrate (MONODOX) 100 MG capsuleIndicati ons:Tick bite of left shoulder, initial encounter,Eryth lynnette migrans (Lyme disease) Take 1 capsule (100 mg total) by mouth 2 (two) times a day for 10 days. Take a probiotic 2 hours after each dose of antibiotic. 20 capsule 5 04/24/20 25 Active OLANZapine (ZYPREXA) 2.5 MG tabletIndicatio ns:Weight loss, abnormal Take 1 tablet (2.5 mg total) by mouth nightly at bedtime. 30 tablet 5 5 03/25/20 25 Discontinu ed(Dose adjustment ) Active Problems Problem Noted Date Diagnosed Date Primary insomnia 03/25/2025 Overview (03/25/2025): Uses remeron and CBD Tick bite of right knee 02/06/2025 Assessment & Plan (02/06/2025 11:07 AM EDT): noticed bite to back of right knee last night- still with small black center- remaining part of tick. Has area of redness around bite. No fever or swelling. He feels as if the tick was only imbedded for 24hrs. - tx with prophylactic doxycycline per patient request. Explained to patient that this is not needed given that it was not embedded for >72hrs, but he recently was hospitalized for lyme and would like treatment. Weight loss, abnormal 01/31/2025 Overview (01/31/2025): Chronically underweight, poor appetite. No red flag sx Normal labs 2023 Olanzapine rx January 2025 Sleep disorder 06/27/2024 Overview (06/27/2024): Uses CBD, melatonin, remeron rx'd by Dr Garay Other male erectile dysfunction 05/17/2024 Overview (05/17/2024): Prefers viagra Transaminitis 05/14/2023 Overview (08/24/2023): Associated with fever April 2023, treated presumptively for anaplasmosis although serology was negative. Assessment & Plan (08/24/2023 11:14 AM EST): Clinically is doing well. Liver function was just about back to normal on last check. Will recheck again and I expect it should be back to normal. If he has continued significantly abnormal liver function, will need further evaluation. Assessment & Plan (05/17/2023 4:55 PM EDT): Persistent mild transaminitis, unclear significance but may go along with systemic infection CT with mild thickening of the CBD but no ductal dilatation or gallstones seen. Abdominal ultrasound with similar findings. 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 Recommend anti-inflammatories for pain. Consider PT, follow-up with PCP. Left inguinal pain 09/19/2022 Assessment & Plan (09/19/2022 3:29 PM EST): I suspect he has an injury to his hip flexor. He can gently stretch and use some ice as needed. Sprain of anterior cruciate ligament of right kn ee 12/01/2021 Assessment & Plan (12/01/2021 12:36 PM EDT): He has a mild sprain of his knee. He may have strained his anterior cruciate ligament. He is gradually getting better. I recommend he avoid activities that worsen his pain, but expect he will gradually improve over the course of the next few weeks. Postherpetic neuralgia 08/09/2021 Overview (03/25/2025): Zoster May 2021 treated with valacyclovir. Severe R chest sensitivity. Had QUINTERO with lyrica Self-dc'd gabapentin Mar 2025: now having eval with [facility] pain [facility] Assessment & Plan (05/17/2024 2:29 PM EDT): He requests daytime opiate, but I don't think this is appropriate Try again with gabapentin lower dose, take daytime also 100mg At the end of the visit he mentions seeing a nerve pain specialist in [place], will send the referral information through the portal. Assessment & Plan (08/24/2023 11:14 AM EST): Although the patient describes significant pain, he feels like he is doing well with his current medication. The daytime somnolence is having may be related to gabapentin. I told him there are other treatment options available and he can discuss this with his neurologist if he would like to look into other options. For now we will continue with his current treatment. Assessment & Plan (05/09/2023 11:05 AM EDT): I recommend he take gabapentin nightly. If this does not adequately control his pain, try taking extended release acetaminophen 1 tablet nightly with gabapentin. If after a week this does not adequately control the pain he can increase the dose to 2 tablets of acetaminophen (1300 mg) along with gabapentin. I asked him to stop taking mirtazapine and ibuprofen. He will follow-up with me in about a month, but if the regimen recommended above controls his pain quite well, he can cancel his appointment and see me back in 1 year for an annual wellness visit. Assessment & Plan (03/06/2023 12:50 PM EDT): Has not tolerated gabapentin even at a low-dose 300 mg nightly. He did not tolerate pregabalin previously. He has not tried amitriptyline. Recommend he tries this next to help with sleep and neuropathic pain. Side effects discussed. Opioids are not an option long-term for management of PHN. Patient is cautioned not to use medications from other people for pain management Assessment & Plan (09/19/2022 3:30 PM EST): Try taking acetaminophen extended release 1300 mg at bedtime. If is not effective try gabapentin 300 mg at bedtime and if this is not helpful but he is not oversedated, he can take 600 mg at bedtime. If none of these help, I would recommend a trial of Lyrica. Assessment & Plan (02/10/2022 10:52 AM EDT): He is still having pain, current treatment is controlling it adequately. Continue the same. If he sees a diminution of his pain he can gradually start to wean down the dose of gabapentin. Assessment & Plan (12/01/2021 12:35 PM EDT): Pain is better but persistent. He may do better with a higher dose of gabapentin so I increased him to 300 mg 3 times daily. He finds it exercises been helpful for his shoulder. I am not sure if this is related to the postherpetic neuralgia or he has something else going on. I will have him go to physical therapy. Assessment & Plan (10/20/2021 8:29 AM EST): Neuropathy is better but he still having significant amount of trouble sleeping. I like him to shift the dose to be taking more of it at bedtime. We can continue to adjust the dose to try to minimize daytime sedation and improve pain control and sleep. If he does not tolerate this, changing carbamazepine may be a good option. If he is not having good success with this dose adjustment, I asked him to contact me through the [facility] so we can make adjustments as needed. Assessment & Plan (08/09/2021 10:59 AM EST): Pain is gradually improving but still a significant problem but it is making it difficult to sleep. Like him to increase his dose of gabapentin to 200 mg at bedtime. If he has no effect and this is not over sedating, he can increase the dose to 300 mg at bedtime. If after for 5 days he sees no significant improvement, or if he is not tolerating it, we can change him to Lyrica. Typically symptoms should resolve over the course of 1 to 6 months and we can wean down his medication as his symptoms talita. Dyspnea on exertion 08/09/2021 Overview (08/09/2021): Exercise stress test and pulmonary evaluation normal in 2020 Assessment & Plan (08/09/2021 11:01 AM EST): Symptoms are likely due to age and deconditioning. Generally is quite active and has a good exercise capacity. Unless his symptoms worsen I do not think he needs any further evaluation. History of prostate cancer 02/15/2007 Overview (02/15/2022): Prostatectomy 2006 Resolved Problems Problem Noted Date Diagnosed Date Resolved Date Fever 05/14/2023 08/24/2023 Assessment & Plan (05/17/2023 4:55 PM EDT): Presented to the emergency department with fever and generalized weakness, mild hypoxia Febrile in the ED to 101.8. Initial labs showed a mild transaminitis, normal CBC Fever has resolved. Blood cultures NGTD. Lyme screen was negative. Ehrlichia/Anaplasma and Babesia PCR negative He has had a persistent mild transaminitis as well as a rise in alkaline phosphatase. Unclear significance. He has had no abdominal pain or tenderness on exam. Abdominal ultrasound shows some mild thickening of the wall of the common bile duct. No Shanna though cholelithiasis or biliary ductal dilatation. Mild thickening of the gallbladder wall may be accentuated by degree of gallbladder decompression Spoke with GI regarding abnormal LFTs and imaging findings. Unclear if these are related. MRCP recommended -- Awaiting MRCP --Continue to trend LFTs --On doxycycline, plan 5-day course for treatment of possible pneumonia, given absence of alternative explanation for his fever and chest x-ray finding --Anticipate discharge home soon pending review of MRI Hyponatremia 05/14/2023 08/24/2023 Assessment & Plan (05/16/2023 4:12 PM EDT): Most likely related to systemic illness. 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 Encounters Date Type Department Care Team Description 04/14/2025 3:09 PM EDT - 04/14/2025 11:59 PM EDT Hospital Encounter [facility], X-Ray - [address] [place] [address] Malcolm Molina MD Arrived Discharge Disposition: Home or Self Care 04/14/2025 1:20 PM EDT Office Visit [facility] at [address] [place] [address] Valarie Casas, RADHA Tick bite of left shoulder, initial encounter (Primary Dx); Erythema migrans (Lyme disease) 04/14/[address] [place] [address] Malcolm Molina MD Triage (Green+Tick bite) 04/01/2025 Orders Only [address] [place] [address] Malcolm Molina MD Weight loss, abnormal (Primary Dx) 04/01/[address] [place] [address] Malcolm Molina MD Request For Order(s) 03/26/[address] [place] [address] Malcolm Molina MD Referral 03/25/2025 3:40 PM EDT - 03/25/2025 11:59 PM EDT Hospital Encounter [facility] [address] [place] [address] [place] [address] Malcolm Molina MD Discharge Disposition: Home or Self Care 03/25/2025 2:45 PM EDT Office Visit [address] [place] [address] Malcolm Molina MD Weight loss, abnormal (Primary Dx); Early satiety; History of prostate cancer; Postherpetic neuralgia; Primary insomnia 03/24/2025 Telephone [facility] [address] [place] [address] Malcolm Molina MD Triage (Green + weight loss + ongoing) 02/06/2025 11:00 AM EDT Telemedicine [address] [place] [address] Tick bite of right knee, initial encounter (Primary Dx) 02/06/2025 Nurse Triage [address] [place] [address] Val Ventura RN Tick Bite (After Hours Call Program ) 01/31/2025 10:45 AM EDT Office Visit [facility] [address] [place] [address] Malcolm Molina MD Postherpetic neuralgia (Primary Dx); Weight loss, abnormal from Last 3 Months Immunizations Immunization Administration Dates Next Due COVID-19 (Pre-06/12) Pfizer Vaccine, mRNA, PF 11/13/2020,10/23/2020 Hepatitis B, unspecified formulation 04/20/2007 Influenza High-Dose Quadriva lent Preservative Free IM 04/21/2023,08/09/2021,07/11/2020 Influenza Quadrivalent Preservative Free IM 04/22 Pneumococcal polysaccharide PPSV23 04/29/2020 Td (adult),2 Lf Tetanus Toxo id, PF, Adsorbed 11/28/2016 Td, unspecified formulation 10/19/2004 Zoster recombinant 04/21/2023 Family History Medical History Relation Comments No Known Problems Daughter Bipolar disorder Father Emphysema Father Heart attack Mother Stroke Mother No Known Problems Son Relation Status Comments Brother Alive Daughter Alive Father (Age 76) Mother (Age 82) Sister Alive Son Alive Social History Tobacco Use Types Packs/Day Years Used Date Smoking Tobacco: Former Cigarettes 1 1971 Smokeless Tobacco: Never Alcohol Use Standard 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 [employer]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, [employer]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 Last Filed Vital Signs Vital Sign Reading [...] Mass Index 16.45 04/14/2025 2:08 PM EDT Plan of Treatment Upcoming Encounters Date Type Department Care Team (Late st Contact Info) Description 06/26/2025 11:30 AM EST Office Visit [address] [place] [address] Malcolm Molina MD [address] [place] [address], [address] [place] [address] 08/05/2025 10:45 AM EST Office Visit [address] [place] [address] Malcolm Molina MD [address] [place] [address], [address] [place] [address] Health Maintenance Due Date Last Done Comments RSV VACCINE (1 - 1-dose 75+ series) 2022 COVID-19 VACCINE ( season) 2024 05/31/2024, 06/04/2023, 05/12/2022, Additional history exists INFLUENZA VACCINE (#1) 2025 , 04/21/2023, 04/21/2023, Additional history exists DEPRESSION SCREENING 06/27/2025 06/27/2024 SMOKING Hx and SMOKELESS TOBACCO SCREENING 03/25/2026 03/25/2025 Adult Td,Tdap Booster 11/28/2026 11/28/2016, 005 ZOSTER VACCINES Completed 09/21/2023, 04/21/2023 PNEUMOCOCCAL VACCINES (50+ years) Completed 06/17/2024, 04/29/2020 HEPATITIS A VACCINES Aged Out No long er eligible based on patient's age to complete this topic HIB VACCINES Aged Out No longer eligi ble based on patient's age to complete this topic MENINGOCOCCAL VACCINES (ACWY) Aged Out No longer eligible based on patient's age to complete this topic MENINGOCOCCAL VACCINES (B) Aged Out N o longer eligible based on patient's age to complete this topic Medical Devices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 Procedures Procedure Name Priority Date/Time Associated Diagnosis Comments XR CHEST PA AND LATERAL 2 VIEWS Routine 04/14/2025 3:20 PM EDT Weight loss, abnormal PREALBUMIN Routine 03/25/2025 3:41 PM EDT Weight loss, abnormal LFTS (HEPATIC PANEL) Routine 03/25/2025 3:41 PM EDT Weight loss, abnormal LIPASE Routine 03/25/2025 3:41 PM EDT Weight loss, abnormal BASIC METABOLIC PANEL Routine 03/25/2025 3:41 PM EDT Weight loss, abnormal PSA DIAGNOSTIC (MONITORING) Routine 03/25/2025 3:41 PM EDT History of prostate cancer TISSUE TRANSGLUTAMINASE IGA Routine 03/25/2025 3:41 PM EDT Weight loss, abnormal IMMUNOGLOBULIN A Routine 03/25/2025 3:41 PM EDT Weight loss, abnormal from Last 3 Months Results * XR CHEST PA AND LATERAL 2 VIEWS (04/14/2025 3:20 PM EDT) Anatomical Region Laterality Modality Chest Computed Radiogr aphy 04/14/2025 3:32 PM EDT Impressions 04/14/2025 3:35 PM EDT No acute abnormality. Narrative 04/14/2025 3:35 PM EDT XR CHEST PA AND LATERAL 2 VIEWS Referring clinician's provided indication for this examination in [facility]: Weight Loss COMPARISON: XR CHEST PA AND [...] clinician's provided indication for this examination in [facility]:Weight Loss COMPARISON: XR CHEST PA AND LATERAL 2 VIEWS FINDINGS: Devices/Tubes/Lines: None. Lungs: Calcified biapical scarring. No consolidation or pulmonary edema. Pleura: No pleural effusion or pneumothorax. Heart/Mediastinum: The heart and mediastinum are normal. Bones/Soft Tissues: No acute skeletal abnormality. Stable left [id number] rib deformity. IMPRESSION: No acute abnormality. us Malcolm Molina MD IMG XR CHEST Final Result * PSA diagnostic (monitoring) (03/25/2025 3:41 PM EDT) PSA <0.01 0 - 4.00 ng/mL [facility] Comment: Test Methodology Ulis [id number] Patient results determined by assays using different manufacturers or methods may not be comparable. Blood 03/25/2025 3:41 PM EDT 03/25/2025 3:47 PM EDT us Malcolm Molina MD LAB BLOOD ORDERABLES Final Resu lt [address] [address] * (ABNORMAL) LFTs (hepatic panel) (03/25/2025 3:41 PM EDT) [facility] ALKALINE PHOSPHATASE 86 39 - 117 U/L [facility] TOTAL BILIRUBIN 1.0 0.0 - 1.2 mg/dL [facility] DIRECT BILIRUBIN 0.3(H) 0.0 - 0.2 mg/dL [facility] Bilirubin (Indirect) 0.7 0 - 1.5 mg/dL [facility] AST 25 0 - 37 U/L [facility] ALT 13 0 - 40 U/L [facility] TOTAL PROTEIN 7.2 6.5 - 8.0 g/dL [facility] ALBUMIN 4.0 3.9 - 4.8 g/dL [facility] GLOBULIN 3.2 1 - 4.8 g/dL [facility] A/G Ratio 1.25 1.00 - 4.80 RATIO [facility] Blood 03/25/2025 3:41 PM EDT 03/25/2025 3:47 PM EDT us Malcolm Molina MD LAB BLOOD ORDERABLES Final Resu lt Performing Organization Address City/[facility]/ZIP Co de Phone Number [address] [address] * Tissue transglutaminase IgA (03/25/2025 3:41 PM EDT) [facility] TTG IGA ANTIBODY <1.2 <4.0 (Negative) U/mL [facility] Blood 03/25/2025 3:41 PM EDT 03/25/2025 3:47 PM EDT us Malcolm Molina MD LAB BLOOD ORDERABLES Final Resu lt [facility] [place] [address] * (ABNORMAL) Prealbumin (03/25/2025 3:41 PM EDT) PREALBUMIN 19(L) 20 - 40 mg/dL [facility] Blood 03/25/2025 3:41 PM EDT 03/25/2025 3:47 PM EDT us Malcolm Molina MD LAB BLOOD ORDERABLES Final Resu lt Performing Organization Address [facility]/ZIP Co de Phone Number [address] [address] * Lipase (03/25/2025 3:41 PM EDT) LIPASE 21 16 - 63 U/L [facility] Blood 03/25/2025 3:41 PM EDT 03/25/2025 3:47 PM EDT us Malcolm Molina MD LAB BLOOD ORDERABLES Final Resu lt Performing Organization Address [facility] de Phone Number [address] [address] * Immunoglobulin A (03/25/2025 3:41 PM EDT) IgA 393 70 - 400 mg/dL [facility] Blood 03/25/2025 3:41 PM EDT 03/25/2025 3:47 PM EDT us Malcolm Molina MD LAB BLOOD ORDERABLES Final Resu lt Performing Organization Address [facility] Co de Phone Number [address] [address] * (ABNORMAL) Basic metabolic panel (03/25/2025 3:41 PM EDT) SODIUM 139 133 - 146 mmol/L [facility] CHLORIDE 100 96 - 108 mmol/L [facility] POTASSIUM 4.6 3.3 - 5.1 mmol/L [facility] CO2 26 21 - 35 mmol/L [facility] BUN 20(H) 6 - 19 mg/dL [facility] CREATININE 1.10 0.5 - 1.5 mg/dL [facility] GLUCOSE 114(H) 70 - 99 mg/dL [facility] CALCIUM 9.5 8.4 - 10.3 mg/dL [facility] EGFR 69 >59 mL/min/1.7 3m2 [facility] Comment:Estimated glomerular filtration rate calculated using the CKD-EPI refit equation. ANION GAP 18 10 - 20 mmol/L [facility] Blood 03/25/2025 3:41 PM EDT 03/25/2025 3:47 PM EDT us Malcolm Molina MD LAB BLOOD ORDERABLES Final Resu lt [address] [address] from Last 3 Months Insurance MEDICARE PART A & B [employer]ANCE SUPPLEMENT MEDICARE PART A & B [facility] MEDIC[facility] ENHANCE SUPPLEMENT MEDICARE PART A & B [facility] MEDICARE ENHANCE SUPPLEMENT MEDICARE PART A & [place] [address] [place] [address] MEDICARE ENHANCE SUPPLEMENT MEDICARE PART A & B [facility] MEDICARE ENHANCE SUPPLEMENT MEDICARE PART A & B [employer] [place] [address] MEDICARE PART A & B [facility] MEDICARE ENHANCE SUPPLEMENT MEDICARE PART A & B [facility] MEDICARE ENHANCE SUPPLEMENT MEDICARE PART A & B [employer] MED[employer] ENHANCE SUPPLEMENT Advance Directives For more information, please contact: [phone] (9AM - 5PM [facility], Monday-Monday) Documents on File Type Date Recorded 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 Expl anation Healthcare Proxy 08/17/2023 [facility] Healthcare Proxy Living Will 08/17/2023 Living Will * Full Code (Latest Code Status on File) Date Activated Date Inactivated Comments 05/14/2023 9:03 PM Question Answer Comments Code Status Confirmed With: Patient Healthcare Agents on File Name Relationship Healthcare Agent [facility] p Communication Analy [employer] Other .Primary Health Care Agent (Proxy form on file) Care Teams Track Oiler Relationship Specialty Start Date End Date Malcolm Molina MD [address] [place] [address], [address] [place] [address] PCP - General Internal Medicine 05/17/24 Malcolm Molina MD [address] [place] [address], [address] [place] [address] [email or web address] Assigned Provider 11/24/24 Additional Source Comments The information contained in this document represents components of the legal health record. It is not the complete legal health record.[facility]
--- OUTSIDE RECORDS SUMMARY | 2025-04-17 12:39 | XMS_ITS | Encounter Summary ---
Author Organization [facility] Address [address] [facility] [address] [place] [address] Phone Care Team Providers Care Rn Angiography Name Role Phone Herbert Heath MD Primary Care Provider [phone]- [phone] Herbert Heath MD Unavailable [phone] Adwoa Elena OT Unavailable [phone] Stefanie Jain RN Unavailable [phone] Malcolm Molina MD Primary Care Provider [phone] Malcolm Molina MD Unavailable [phone] Encounter Details Date Type Department Care Team (Late st Contact Info) Description 02/23/2022 Transcribe Orders [facility] [address] [place] [address] Herbert Heath MD [address] [facility], [address] [place] [address] [email or web address] Social History Tobacco Use Types Packs/Day Years [...] high school, GED, job training, learning the Kyr[place] language, technical skills, or developing parenting skills)? 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 documented as of this encounter Plan of Treatment Upcoming Encounters Date Type Department Care Team (Late st Contact Info) Description 06/26/2025 11:30 AM EST Office Visit [address] [place] [address] Malcolm Molina MD [address] [place] [address], [address] [place] [address] 08/05/2025 10:45 AM EST Office Visit [address] [place] [address] Malcolm Molina MD [address] [place] [address], [address] [place] [address] [email or web address] documented as of this encounter Visit Diagnoses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documented in this encounter Additional Health Concerns Infection Onset Date Last Indicated Resolved Time CoV-Risk Comment:Per note documentation 05/14/2023 05/14/2023 10:26 AM EDT Assessment Noted Time PHQ-2 Depression Total Score: 0 02/11/20 9:56 AM EDT documented as of this encounter Care Teams Rn Angiography Relationship Specialty Start Date End Date Herbert Heath MD [address] [place] [address], [address] [address] PCP - General Internal Medicine 08/09/21 05/16/24 Malcolm Molina MD [address] [place] [address], [address] [address] PCP - General Internal Medicine 05/17/24 Herbert Heath MD [address] [place] [address], [address] [address] Insurance Assigned Provider 11/25/23 11/24/24 Adwoa Elena, OT [address] [place] [address] [email or web address] Transitions Hand I BlockerHide Shaker Therapy 05/17/23 Stefanie Jain, RN [address] [place] [phone] iCMP Hand I Blocker 01/03/24 01/16/24 Malcolm Molina MD [address] [place] [address], [address] [place] [address] [email or web address] Insurance Assigned Provider 11/24/24 documented as of this encounter Additional Source Comments The information contained in this document represents components of the legal health record. It is not the complete legal health record.[facility]
--- OUTSIDE RECORDS SUMMARY | 2025-04-17 12:39 | XMS_ITS | Encounter Summary ---
Author Organization [facility] Address [address] [facility] [address] [place] [address] Phone Care Team Providers Care Pharmaceutical Detailer Name Role Phone Malcolm Molina MD Primary Care Provider [phone] Malcolm Molina MD Unavailable [phone] Reason for Visit * Reason Onset Date Comments Triage 03/24/2025 Green + weight l oss + ongoing Encounter Details Date Type Department Care Team (Late st Contact Info) Description 03/24/2025 Telephone [facility] [address] [id number] Malcolm Molina MD [address] [facility] [place] [address] [email or web address] Triage (Green + weight loss + ongoing) Social History Tobacco Use Types Packs/Day Years 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 10lbs in the last year, 3 in the last month Have you ever experienced these symptoms before? YES Reason patient was not scheduled? SV 03/25 Additional Information: Pt's spouse called in stating pt has been losing weight the last year and was seen for this once before. Pt was put on medication to increase appetite but is down to 102lbs Schedule appointment or offer Care Alternative Options provided in RYOG Tool Follow practice guidelines for routing directions Reason for Call = TRIAGE Comment = GREEN + symptom or NURSING ADVICE REQUEST if requesting to speak with nursing documented in this encounter Plan of Treatment Upcoming Encounters Date Type Department Care Team (Late st Contact Info) Description 06/26/2025 11:30 AM EST Office Visit [address] [place] [address] Malcolm Molina MD [address] [place] [address], [address] [address] 08/05/2025 10:45 AM EST Office Visit [address] [place] [address] Malcolm Molina MD [address] [place] [address], [address] [place] [address] documented as of this encounter Visit Diagnoses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documented in this encounter Additional Health Concerns Assessment Noted Time PHQ-2 Depression Total Score: 0 06/27/20 10:28 AM EST documented as of this encounter Care Teams Pharmaceutical Detailer Relationship Specialty Start Date End Date Malcolm Molina MD [address] [place] [address], [address] [place] [address] [email or web address] PCP - General Internal Medicine 05/17/24 Malcolm Molina MD [address] [place] [address], [address] [place] [address] [email or web address] Insurance Assigned Provider 11/24/24 documented as of this encounter Additional Source Comments The information contained in this document represents components of the legal health record. It is not the complete legal health record.[facility]
--- OUTSIDE RECORDS SUMMARY | 2025-04-17 12:39 | XMS_ITS | Encounter Summary ---
Author Organization [facility] Address [address] [place] [address] Phone Care Team Providers Care Sampler Pickup Name Role Phone Herebrt Heath MD Primary Care Provider [phone] Herbert Heath MD Unavailable [phone] Adwoa Elena OT Unavailable [phone] Stefanie Jain RN Unavailable [phone] Malcolm Molina MD Primary Care Provider [phone] Malcolm Molina MD Unavailable [phone] Encounter Details Date Type Department Care Team (Late st Contact Info) Description 05/14/2023 Procedure Pass [facility], Ct Scan - [address] [address] Social History Tobacco Use Types Packs/Day Years [...] high school, GED, job training, learning the Wol[place] language, technical skills, or developing parenting skills)? 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 documented as of this encounter Functional Status * Calculated C-SSRS Risk Score (Lifetime/Recent) Answer Date of Assessment Author No Risk Indicated 05/14/2023 10:39 AM Sangeeta Varner RN * [place] Suicide Severity Rating Scale (Screener/Recent Self-Report) Question [...] Description 06/26/2025 11:30 AM EST Office Visit [address] [place] [address] Malcolm Molina MD [address] [place] [address], [address] [place] [address] [email or web address] 08/05/2025 10:45 AM EST Office Visit [address] [place] [address] Malcolm Molina MD [address] [place] [address], [address] [address] documented as of this encounter Visit Diagnoses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documented in this encounter Additional Health Concerns Infection Onset Date Last Indicated Resolved Time CoV-Risk Comment:Per note documentation 05/14/2023 05/14/2023 10:26 AM EDT Assessment Noted Time PHQ-2 Depression Total Score: 0 05/08/20 23 5:00 PM EDT documented as of this encounter Care Teams Sampler Pickup Relationship Specialty Start Date End Date Herbert Heath MD [address] [place] [address], [address] [address] PCP - General Internal Medicine 08/09/21 05/16/24 Malcolm Molina MD [address] [place] [address] PCP - General Internal Medicine 05/17/24 Herbert Heath MD [address] [place] [address], [address] [place] [address] [email or web address] Insurance Assigned Provider 11/25/23 11/24/24 Adwoa Elena, OT [address] [place] [address] Transitions Open Soaper TenderScratcher Therapy 05/17/23 Stefanie Jain, BERNARDINO [address] [place] [address] iCMP Open Soaper Tender 01/03/24 01/16/24 Malcolm Molina MD [address] [place] [address], [address] [place] [address] Insurance Assigned Provider 11/24/24 documented as of this encounter Additional Source Comments The information contained in this document represents components of the legal health record. It is not the complete legal health record.[facility]
--- OUTSIDE RECORDS SUMMARY | 2025-04-17 12:40 | XMS_ITS | Encounter Summary ---
Author Organization [facility] Address [address] [place] [address] Phone Care Team Providers Care Leasing Professional Name Role Phone Herbert Heath MD Primary Care Provider [phone] Herbert Heath MD Unavailable [phone] Adwoa Elena OT Unavailable [phone] Stefanie Jani RN Unavailable [phone] Malcolm Molina MD Primary Care Provider [phone] Malcolm Molina MD Unavailable [phone] Encounter Details Date Type Department Care Team (Late st Contact Info) Description 05/17/2023 Procedure Pass [facility], [address] [address] Social History Tobacco Use Types Packs/Day Years Used Date Smoking Tobacco: Former Cigarettes 7 1971 Smokeless Tobacco: Never Alcohol Use 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 [email or web address]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, [employer]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 documented as of this encounter Plan of Treatment Upcoming Encounters Date Type Department Care Team (Late st Contact Info) Description 06/26/2025 11:30 AM EST Office Visit [address] [place] [address] Malcolm Molina MD [address] [place] [address], [address] [place] [address] 08/05/2025 10:45 AM EST Office Visit [address] [place] [address] Malcolm Molina MD [address] [place] [address], [address] [place] [address] documented as of this encounter Visit Diagnoses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documented in this encounter Additional Health Concerns Assessment Noted Time PHQ-2 Depression Total Score: 0 05/08/20 23 5:00 PM EDT documented as of this encounter Care Teams Leasing Professional Relationship Specialty Start Date End Date Herbert Heath MD [address] [place] [address], [address] [place] [address] PCP - General Internal Medicine 08/09/21 05/16/24 Malcolm Molina MD [address] [place] [address], [address] [place] [address] PCP - General Internal Medicine 05/17/24 Herbert Heath MD [address] [place] [address], [address] [place] [phone] Insurance Assigned Provider 11/25/23 11/24/24 Adwoa Elena, OT [address] [place] [address] Transitions [facility] Clinician Therapy 05/17/23 Stefanie Jain, BERNARDINO [address] [place] [phone] iCMP [facility] 01/03/24 01/16/24 Malcolm Molina MD [address] [place] [address], [address] [place] [address] Insurance Assigned Provider 11/24/24 documented as of this encounter Additional Source Comments The information contained in this document represents components of the legal health record. It is not the complete legal health record.[facility]
== END 2025-04-17 12:08 | disposition home or self-care (01) ==
LOC: HO.PMC 11:21
PROVIDERS: PCP Internal Medicine; Visit Provider Anesthesiology
DX: G56.40 Causalgia of unspecified upper limb (principal); B02.29 Other postherpetic nervous system involvement
CPT/HCPCS: 99214

== ENCOUNTER → 2025-04-17 11:20 | Outpatient (BNVA) | payer MEDICARE, OTHER, SELFPAY | PROVIDERS: PCP Internal Medicine; Visit Provider Anesthesiology | DX: B02.29 Other postherpetic nervous system involvement (principal); G56.40 Causalgia of unspecified upper limb; G89.29 Other chronic pain | CPT/HCPCS: 99212 ==